=== PATIENT | female | born 1995 | race African-American/Black ===

== ENCOUNTER 2022-08-29 21:09 | Emergency (ER) | payer MEDICAID ==
[~2022-08-29] VITALS: Ht 167.6 cm; Wt 70.8 kg
[2022-08-29 21:23] VITALS: BP 115/76
[2022-08-29] MEDS ORDERED: IBUPROFEN 600MG TABLET PO ONE (22:45)
== END 2022-08-30 01:15 | disposition home or self-care (01) ==
LOC: ER 21:19
DX: S60.455A Superficial foreign body of left ring finger, initial encounter (principal); W49.04XA Ring or other jewelry causing external constriction, initial encounter; Y93.89 Activity, other specified; Y92.89 Other specified places as the place of occurrence of the external cause; Y99.8 Other external cause status
CPT/HCPCS: 99284